=== PATIENT | male | born 1940 | race Caucasian/White ===

== ENCOUNTER 2017-10-26 00:55 | Inpatient (IN) | payer MEDICARE, BC ==
[~2017-10-26] VITALS: Ht 165.1 cm; Wt 143.9 kg
[2017-10-26] VITALS (9 sets, daily range): BP systolic 115–154; BP diastolic 47–78
[2017-10-26 01:15] LABS: BASO % 0.3 % (0.0-1.0); EOS # 0.1 10*3/uL (0.0-0.4); EOS % 0.9 % (1.0-4.0); HEMATOCRIT 43.8 % (42.0-52.0); HEMOGLOBIN 14.5 g/dl (14.0-18.0); LYMPH # 1.9 10*3/uL (1.3-4.4); LYMPH % 13.4 % (27.0-41.0); MEAN CELL VOLUME 92.8 fl (80.0-94.0); MEAN CORPUSCULAR HGB 30.7 pg (27.0-31.0); MEAN CORPUSCULAR HGB CONC 33.1 g/dl (33.0-37.0); MEAN PLATELET VOLUME 10.4 fl (9.6-12.3); MONO # 1.5 10*3/uL (0.1-1.0); MONO % 10.9 % (3.0-9.0); NEUT # 10.2 10*3/uL (2.3-7.9); NEUT % 73.6 % (47.0-73.0); PLATELET COUNT AUTOMATED 252 10*3/uL (130-400); RED BLOOD COUNT 4.72 10*6/uL (4.50-5.90); RED CELL DISTRI WIDTH 12.8 % (0-14.5); WHITE BLOOD COUNT 13.8 10*3/uL (4.8-10.8)
[2017-10-26 01:25] LABS: ACT PARTIAL THROMBO TIME 26.5 SECONDS (20.8-31.5)
[2017-10-26 01:30] LABS: ALBUMIN 2.9 gm/dl (3.1-4.5); ALKALINE PHOSPHATASE 158 U/L (45-117); BUN 13 mg/dl (7-24); CHLORIDE 102 mmol/L (98-107); CREATININE 0.78 mg/dL (0.70-1.30); POTASSIUM 3.7 mmol/L (3.5-5.1); SGOT/AST 271 IU/L (3-35); SGPT/ALT 142 U/L (12-78); SODIUM 140 mmol/L (136-145); TOTAL PROTEIN 7.7 gm/dL (6.4-8.2)
[2017-10-26 01:31] LABS: LIPASE 12230 U/L (73-393); TROPONIN I < 0.015 ng/ml (<0.045)
[2017-10-26 02:07] LABS: BILIRUBIN 1+ (NEGATIVE); BLOOD TRACE-INTACT (NEGATIVE); CLARITY CLEAR (CLEAR); COLOR YELLOW (YELLOW); GLUCOSE NEGATIVE (NEGATIVE); KETONE NEGATIVE (NEGATIVE); LEUKO ESTERASE 2+ (NEGATIVE); NITRITE NEGATIVE (NEGATIVE); SPECIFIC GRAVITY 1.025 (1.005-1.030)
[2017-10-26 02:33] LABS: BACTERIA TRACE
[2017-10-26] MEDS ORDERED: LANTUS SOL100 UNIT/1 SQ (06:12)
[2017-10-26] MEDS ORDERED: LANTUS SOL100 UNIT/1 SC (06:13)
[2017-10-26] MEDS ORDERED: QUINAPRIL40 MG PO (06:14)
[2017-10-26] MEDS ORDERED: HYDROCHLOROTH12.5 M2 PO (06:14)
[2017-10-26] MEDS ORDERED: OMEPRAZOLE40 MG PO (06:15)
[2017-10-26] MEDS ORDERED: TRAMADOL HCL50 MG PO (06:15)
[2017-10-26] MEDS ORDERED: DOXYCYCLINE100 M3 PO (06:16)
[2017-10-26] MEDS ORDERED: ASPIRIN CHEWABL81 MG PO (06:16)
[2017-10-26 06:25] LABS: BASO % 0.3 % (0.0-1.0); EOS # 0.1 10*3/uL (0.0-0.4); EOS % 0.6 % (1.0-4.0); HEMATOCRIT 44.1 % (42.0-52.0); HEMOGLOBIN 14.4 g/dl (14.0-18.0); LYMPH # 0.7 10*3/uL (1.3-4.4); LYMPH % 6.1 % (27.0-41.0); MEAN CORPUSCULAR HGB CONC 32.7 g/dl (33.0-37.0); MEAN PLATELET VOLUME 10.6 fl (9.6-12.3); MONO # 1.4 10*3/uL (0.1-1.0); MONO % 11.4 % (3.0-9.0); NEUT # 9.7 10*3/uL (2.3-7.9); NEUT % 80.8 % (47.0-73.0); PLATELET COUNT AUTOMATED 236 10*3/uL (130-400); RED BLOOD COUNT 4.64 10*6/uL (4.50-5.90); RED CELL DISTRI WIDTH 12.8 % (0-14.5)
[2017-10-26 06:55] LABS: ACT PARTIAL THROMBO TIME 25.9 SECONDS (20.8-31.5); INTERNATIONAL NORM RATIO 1.1 (2.0-3.5)
[2017-10-26 07:02] LABS: CHLORIDE 103 mmol/L (98-107); POTASSIUM 4.1 mmol/L (3.5-5.1); SODIUM 141 mmol/L (136-145)
[2017-10-26 07:14] LABS: ALBUMIN 2.6 gm/dl (3.1-4.5); ALKALINE PHOSPHATASE 202 U/L (45-117); BUN 10 mg/dl (7-24); CHOLESTEROL 113 mg/dL (<200); CREATININE 0.77 mg/dL (0.70-1.30); FREE T4 1.23 ng/dl (0.76-1.46); HDL CHOLESTEROL 41 mg/dl (40-60); LDL CHOLESTEROL 62 mg/dL (9-159); PHOSPHOROUS 2.8 mg/dL (2.5-4.9); SGOT/AST 469 IU/L (3-35); SGPT/ALT 313 U/L (12-78); TOTAL PROTEIN 7.2 gm/dL (6.4-8.2); TRIGLYCERIDES 51 mg/dl (<150); VLDL CHOLESTEROL 10 mg/dL (6-40)
[2017-10-26 07:45] LABS: VITAMIN D, 25-HYDROXY 38.5 ng/mL (30-100)
--- NOTE | 2017-10-26 21:01 | NUR ---
PATIENT SITTING IN CHAIR AT BEDSIDE WATCHING FOOTBALL. NO NEEDS OR COMPLAINTS AT THIS TIME. DENIES CHEST PAIN. BED IN LOWEST POSITION, CALL LIGHT IN REACH
[2017-10-27] VITALS: BP 147/81
[2017-10-27 06:43] LABS: BASO % 0.3 % (0.0-1.0); EOS # 0.3 10*3/uL (0.0-0.4); EOS % 3.4 % (1.0-4.0); HEMATOCRIT 39.7 % (42.0-52.0); HEMOGLOBIN 12.8 g/dl (14.0-18.0); LYMPH # 0.9 10*3/uL (1.3-4.4); LYMPH % 10.3 % (27.0-41.0); MEAN CELL VOLUME 94.7 fl (80.0-94.0); MEAN CORPUSCULAR HGB 30.5 pg (27.0-31.0); MEAN CORPUSCULAR HGB CONC 32.2 g/dl (33.0-37.0); MEAN PLATELET VOLUME 10.8 fl (9.6-12.3); MONO # 0.9 10*3/uL (0.1-1.0); MONO % 10.4 % (3.0-9.0); NEUT # 6.7 10*3/uL (2.3-7.9); NEUT % 74.5 % (47.0-73.0); PLATELET COUNT AUTOMATED 227 10*3/uL (130-400); RED BLOOD COUNT 4.19 10*6/uL (4.50-5.90); RED CELL DISTRI WIDTH 13.1 % (0-14.5); WHITE BLOOD COUNT 9.1 10*3/uL (4.8-10.8)
--- NOTE | 2017-10-27 06:54 | NUR ---
PATIENT RESTING IN BED WITH NO NEEDS MADE. USED CPAP FROM HOME DURING THE NIGHT. BED IN LOWEST POSITION, CALL LIGHT IN REACH
[2017-10-27 07:15] LABS: ALBUMIN 2.3 gm/dl (3.1-4.5); ALKALINE PHOSPHATASE 185 U/L (45-117); BUN 10 mg/dl (7-24); CHLORIDE 107 mmol/L (98-107); CREATININE 0.67 mg/dL (0.70-1.30); PHOSPHOROUS 2.5 mg/dL (2.5-4.9); POTASSIUM 4.2 mmol/L (3.5-5.1); SGOT/AST 216 IU/L (3-35); SGPT/ALT 289 U/L (12-78); SODIUM 142 mmol/L (136-145); TOTAL PROTEIN 6.5 gm/dL (6.4-8.2)
--- NOTE | 2017-10-27 08:00 | NUR ---
PT ULTRASOUND VIA WHEELCHAIR
--- NOTE | 2017-10-27 08:45 | NUR ---
PT RESTING IN CHAIR. NO DISTRESS NOTED. STATES THAT HE FEELS BETTER SINCE ADM. CALL LIGHT WITHIN REACH. WILL MONITOR
--- NOTE | 2017-10-27 09:00 | NUR ---
Hospice Team Lead in to talk to patient. Patient states lives at [facility] with . There are few steps in the home. Physician: michael [facility] Home health services: none Patient's level of ADLs: INDEPENDENT Patient has working utilities: all working DME: cpap Follow-up physician's appointment after d/c: will be made by hospitalist nurse director upon discharge Does patient want to access PORTAL?: no Discharge plan discussed with patient, patient lives at home with , states he is independent in adls and ambulation, patient states he will be going back home when able, discussed with him [facility] and he refused any services at this time. ANICETO SMITH
[2017-10-27 12:00] VITALS: BP 158/81
[2017-10-27 16:00] VITALS: BP 150/82
--- NOTE | 2017-10-27 17:27 | NUR ---
PT RESTING IN BED, NO DISTRESS NOTD. NO VOICED C/O. WILL MONITOR
--- NOTE | 2017-10-27 19:55 | NUR ---
PATIENT RESTING IN CHAIR AT BEDSIDE WITH NO NEEDS MADE. STATES HE FEELS MUCH BETTER AND IS READY TO GET HOME TO HIS WHO IS IN A [facility] FOR BRAIN SURGERY. NO NEEDS MADE AT THIS TIME. DENIES CHEST OR ABD PAIN. BED IN LOWEST POSITION, CALL LIGHT IN REACH
[2017-10-27 20:00] VITALS: BP 155/78
--- NOTE | 2017-10-27 22:11 | NUR ---
PATIENT'S MED REC REVIEWED. HOME MEDICATIONS NOT RESTARTED BY PHYSICIANS OF THIS TIME
--- NOTE | 2017-10-27 22:18 | NUR ---
DR MENON AWARE OF PATIENT'S HOME MEDS NOT BEING CONTINUED AND PATIENT TAKES HYDROCHLOROTHIAZIDE AT HOME, AND IS CURRENTLY GETTING FLUIDS AT 150/HR. SHE STATES SHE WILL ORDER A STAT CHEST XRAY AND TO SLOW FLUIDS DOWN TO 80ML/HR.
[2017-10-28] VITALS: BP 137/57
[2017-10-28 06:18] LABS: HEMATOCRIT 38.8 % (42.0-52.0); HEMOGLOBIN 12.8 g/dl (14.0-18.0); MEAN CELL VOLUME 94.4 fl (80.0-94.0); MEAN CORPUSCULAR HGB 31.1 pg (27.0-31.0); MEAN PLATELET VOLUME 10.9 fl (9.6-12.3); PLATELET COUNT AUTOMATED 257 10*3/uL (130-400); RED BLOOD COUNT 4.11 10*6/uL (4.50-5.90); RED CELL DISTRI WIDTH 13.1 % (0-14.5); WHITE BLOOD COUNT 9.1 10*3/uL (4.8-10.8)
[2017-10-28 06:36] LABS: ALBUMIN 2.4 gm/dl (3.1-4.5); BUN 12 mg/dl (7-24); CHLORIDE 107 mmol/L (98-107); LIPASE 193 U/L (73-393); POTASSIUM 4.3 mmol/L (3.5-5.1); SODIUM 142 mmol/L (136-145)
[2017-10-28 06:40] LABS: ALKALINE PHOSPHATASE 174 U/L (45-117); BILIRUBIN, DIRECT 0.5 mg/dL (0.0-0.2); CREATININE 0.66 mg/dL (0.70-1.30); SGOT/AST 84 IU/L (3-35); SGPT/ALT 189 U/L (12-78); TOTAL PROTEIN 6.4 gm/dL (6.4-8.2)
[2017-10-28 07:16] LABS: PLATELET SUFFICIENCY NORMAL (NORMAL); TOTAL CELLS COUNTED 100 #CELLS
[2017-10-28 08:00] VITALS: BP 156/78
--- NOTE | 2017-10-28 09:00 | NUR ---
case management visits with patient, patient denies any home needs
--- NOTE | 2017-10-28 10:44 | NUR ---
TALKED TO DR. MITCHELL. SURGERY HAS BEEN RULED AND LOW FAT DIET REQUESTED. WILL CONTINUE TO MONITOR.
--- NOTE | 2017-10-28 11:29 | NUR ---
CALLED ON PLANS AND DIETSTATUS OF PT. MADE AWARE OF NEW ORDERS.
[2017-10-28 12:00] VITALS: BP 156/73
--- NOTE | 2017-10-28 12:23 | NUR ---
Discharge instructions reviewed with patient. Patient receptive and verbalizes understanding. Written instructions given to patient. GRIS FIGUEROA
[2017-10-28 16:00] VITALS: BP 156/85
[2017-10-28 20:00] VITALS: BP 151/87
[2017-10-29] VITALS: BP 148/74
--- NOTE | 2017-10-29 04:08 | NUR ---
PT SLEEPING. NO DISTRESS NOTED. CHEST RISES AND FALLS SYMMETRICALLY AND STEADILY. HR IS 54 BMP PER CM. CPAP IS CURRENTLY IN USE BY THE PT.
[2017-10-29 06:50] LABS: BASO % 0.3 % (0.0-1.0); EOS # 0.2 10*3/uL (0.0-0.4); EOS % 2.3 % (1.0-4.0); HEMATOCRIT 38.5 % (42.0-52.0); HEMOGLOBIN 12.3 g/dl (14.0-18.0); LYMPH # 2.1 10*3/uL (1.3-4.4); LYMPH % 24.2 % (27.0-41.0); MEAN CELL VOLUME 94.1 fl (80.0-94.0); MEAN CORPUSCULAR HGB 30.1 pg (27.0-31.0); MEAN CORPUSCULAR HGB CONC 31.9 g/dl (33.0-37.0); MEAN PLATELET VOLUME 10.7 fl (9.6-12.3); MONO # 0.9 10*3/uL (0.1-1.0); MONO % 10.8 % (3.0-9.0); NEUT # 5.3 10*3/uL (2.3-7.9); NEUT % 61.2 % (47.0-73.0); PLATELET COUNT AUTOMATED 250 10*3/uL (130-400); RED BLOOD COUNT 4.09 10*6/uL (4.50-5.90); WHITE BLOOD COUNT 8.6 10*3/uL (4.8-10.8)
[2017-10-29 07:02] LABS: ALBUMIN 2.4 gm/dl (3.1-4.5); ALKALINE PHOSPHATASE 141 U/L (45-117); BILIRUBIN, DIRECT 0.3 mg/dL (0.0-0.2); BUN 12 mg/dl (7-24); CHLORIDE 108 mmol/L (98-107); CREATININE 0.62 mg/dL (0.70-1.30); POTASSIUM 3.9 mmol/L (3.5-5.1); SGOT/AST 44 IU/L (3-35); SGPT/ALT 129 U/L (12-78); SODIUM 142 mmol/L (136-145); TOTAL PROTEIN 6.2 gm/dL (6.4-8.2)
[2017-10-29 08:00] VITALS: BP 160/80
--- NOTE | 2017-10-29 09:00 | NUR ---
case management visits with patient, patient denies any home needs
[2017-10-29] MEDS ORDERED: AUGMENTIN 875-875 MG PO (09:32)
[2017-10-29 12:00] VITALS: BP 162/94
--- NOTE | 2017-10-29 13:35 | NUR ---
Discharge instructions reviewed with patient/family. Patient receptive and verbalizes understanding. Follow-up care arranged with pcp and dr. Reza one week. Written instructions given to patient/family. GRIS FIGUEROA
== END 2017-10-29 13:35 | disposition home or self-care (01) | DRG 871 ==
LOC: ED 00:55 → 5E 04:19 → EDHOLD 04:19 → 5E 04:33
PROVIDERS: Hospitalist; Internal Medicine; Nurse Practitioner Family; ADMIT Internal Medicine
DX: A41.9 Sepsis, unspecified organism (principal); K85.10 Biliary acute pancreatitis without necrosis or infection; E11.65 Type 2 diabetes mellitus with hyperglycemia; K81.9 Cholecystitis, unspecified; E66.01 Morbid (severe) obesity due to excess calories; E88.09 Other disorders of plasma-protein metabolism, not elsewhere classified; Z68.43 Body mass index [BMI] 50.0-59.9, adult; I10 Essential (primary) hypertension; K21.9 Gastro-esophageal reflux disease without esophagitis; E80.6 Other disorders of bilirubin metabolism; R74.0 Nonspecific elevation of levels of transaminase and lactic acid dehydrogenase [LDH]; R74.8 Abnormal levels of other serum enzymes; Z87.891 Personal history of nicotine dependence; Z90.89 Acquired absence of other organs; Z79.899 Other long term (current) drug therapy; Z79.82 Long term (current) use of aspirin; Z79.4 Long term (current) use of insulin; Z88.8 Allergy status to other drugs, medicaments and biological substances

== ENCOUNTER 2017-11-17 01:32 | Inpatient (IN) | payer MEDICARE, BC ==
[2017-11-13 10:53] LABS: BASO % 0.4 % (0.0-1.0); EOS # 0.1 10*3/uL (0.0-0.4); EOS % 0.9 % (1.0-4.0); HEMATOCRIT 45.9 % (42.0-52.0); HEMOGLOBIN 14.8 g/dl (14.0-18.0); LYMPH # 1.6 10*3/uL (1.3-4.4); MEAN CELL VOLUME 94.4 fl (80.0-94.0); MEAN CORPUSCULAR HGB 30.5 pg (27.0-31.0); MEAN CORPUSCULAR HGB CONC 32.2 g/dl (33.0-37.0); MEAN PLATELET VOLUME 10.9 fl (9.6-12.3); MONO % 13.2 % (3.0-9.0); NEUT # 4.8 10*3/uL (2.3-7.9); NEUT % 64.2 % (47.0-73.0); PLATELET COUNT AUTOMATED 335 10*3/uL (130-400); RED BLOOD COUNT 4.86 10*6/uL (4.50-5.90); WHITE BLOOD COUNT 7.5 10*3/uL (4.8-10.8)
[2017-11-13 11:20] LABS: ALBUMIN 3.3 gm/dl (3.1-4.5); ALKALINE PHOSPHATASE 108 U/L (45-117); BUN 18 mg/dl (7-24); CHLORIDE 102 mmol/L (98-107); CREATININE 0.89 mg/dL (0.70-1.30); POTASSIUM 4.3 mmol/L (3.5-5.1); SGOT/AST 22 IU/L (3-35); SGPT/ALT 38 U/L (12-78); SODIUM 139 mmol/L (136-145); TOTAL PROTEIN 8.1 gm/dL (6.4-8.2)
[~2017-11-17] VITALS: Ht 170.1 cm; Wt 139.9 kg
[2017-11-17] VITALS (19 sets, daily range): BP systolic 135–169; BP diastolic 61–92
[~2017-11-17 01:32] MED LIST: ASPIRIN CHEWABL81 MG PO; AUGMENTIN 875-875 MG PO; CENTRUM SILVER1 EACH PO; DOXYCYCLINE100 M3 PO; HYDROCHLOROTH12.5 M2 PO; LANTUS SOL100 UNIT/1 SC; LANTUS SOL100 UNIT/1 SQ; METAMUCIL0.4 G1 PO; NOVOLOG100 UNIT/1 SC; OMEPRAZOLE40 MG PO; QUINAPRIL40 MG PO; TRAMADOL HCL50 MG PO
[2017-11-17] MEDS ORDERED: PERCOCET 5-3251 EACH PO (13:39)
--- NOTE | 2017-11-17 17:00 | NUR ---
PATIENT'S NEDICATION WAS PLACED INTO THE COMPUTER AND DR. SOFIA AWARE.
--- NOTE | 2017-11-17 19:07 | NUR ---
INSTUCTED PT ON USE AND BENEFITS OF INCENTIVE SPIROMETRY. PT HAD GOOD EFFORT 2000 X 10 I.S. AT BEDSIDE
--- NOTE | 2017-11-17 19:58 | NUR ---
Time: 1599 A 76 year old MALE admitted to under services of PRAMOD MARIN DO. Pt. arrived via bed from OP/ADMIT. Chief complaint: LAP CHOLESYSECTOMY AND HIATEL HERNIA REPAIR. ERNESTINA MARIANO
--- NOTE | 2017-11-17 20:09 | NUR ---
Upon entering room pt. c/o "i feel like my throat is closing off. It's happend to me before." pt. has been clearing throat. vital signs obtain and assessment. called Dr. Barnes and notified him of this and orders received.
--- NOTE | 2017-11-17 20:15 | NUR ---
Dr. Barnes here and assessed pt. orders to be recieved.
--- NOTE | 2017-11-17 20:21 | NUR ---
solumedrol, benadryl, 0.9NS given per order. see mar.
--- NOTE | 2017-11-17 20:50 | NUR ---
called resp. therapist and he said "we need setting orders for the C-pap" pt. unsure of own settings and called Dr. Barnes and he is going to put orders in for settings.
--- NOTE | 2017-11-17 21:30 | NUR ---
PER PT. CONDITION UNCHANGED BUT NOT WORSE. GAVE PT. ICE TO HELP KEEP THROAT MOIST AND TO CALM IRRITATION FEELING PT. STATING HE'S HAVING.
--- NOTE | 2017-11-17 22:00 | NUR ---
UP TO BATHROOM WITH ASSISTANCE. PT. DID WELL UP TO VOID AND RETURNED BACK TO BED. NO DIZZINESS VOICED.
--- NOTE | 2017-11-17 22:56 | NUR ---
PT REFUSED TO WEAR C-PAP AT THIS TIME
[2017-11-18] VITALS: BP 154/76
[2017-11-18 06:54] LABS: BASO % 0.1 % (0.0-1.0); HEMATOCRIT 42.2 % (42.0-52.0); HEMOGLOBIN 13.9 g/dl (14.0-18.0); LYMPH # 0.7 10*3/uL (1.3-4.4); LYMPH % 6.3 % (27.0-41.0); MEAN CELL VOLUME 93.8 fl (80.0-94.0); MEAN CORPUSCULAR HGB 30.9 pg (27.0-31.0); MEAN CORPUSCULAR HGB CONC 32.9 g/dl (33.0-37.0); MONO # 0.7 10*3/uL (0.1-1.0); MONO % 6.4 % (3.0-9.0); NEUT % 86.8 % (47.0-73.0); PLATELET COUNT AUTOMATED 240 10*3/uL (130-400); RED CELL DISTRI WIDTH 13.4 % (0-14.5); WHITE BLOOD COUNT 10.4 10*3/uL (4.8-10.8)
[2017-11-18 07:00] LABS: ALBUMIN 2.9 gm/dl (3.1-4.5); ALKALINE PHOSPHATASE 99 U/L (45-117); BUN 14 mg/dl (7-24); CHLORIDE 105 mmol/L (98-107); CREATININE 0.84 mg/dL (0.70-1.30); PHOSPHOROUS 2.6 mg/dL (2.5-4.9); POTASSIUM 4.1 mmol/L (3.5-5.1); SGOT/AST 75 IU/L (3-35); SGPT/ALT 103 U/L (12-78); SODIUM 141 mmol/L (136-145); TOTAL PROTEIN 7.1 gm/dL (6.4-8.2)
[2017-11-18 08:00] VITALS: BP 128/50
--- NOTE | 2017-11-18 08:00 | NUR ---
ASSUMED CARE OF PATIENT. PATIENT WAS PLEASANT AND COOPERATIVE. NO COMPLAINTS OF PAIN AND SHORTNESS OF BREATH.
--- NOTE | 2017-11-18 09:00 | NUR ---
Team [employer] Truck Driver in to talk to patient. Patient states lives at home with . There are few steps in the home. Physician: mary rodriguez [facility] Home health services: none Patient's level of ADLs: INDEPENDENT Patient has working utilities: all working DME: cpap Follow-up physician's appointment after d/c: will be made by hospitalist nurse director upon discharge Does patient want to access PORTAL?: no Discharge plan discussed with patient, patient lives at home with , states he is independent in adls and ambulation, drives, patient states he will be going back home when able and denies any home needs. ANICETO SMITH
[2017-11-18 12:00] VITALS: BP 127/54
[2017-11-18] MEDS ORDERED: AUGMENTIN 875875 MG PO (13:46)
--- NOTE | 2017-11-18 14:33 | NUR ---
Discharge instructions reviewed with patient/family. Patient receptive and verbalizes understanding. Follow-up care arranged. Written instructions given to patient/family. FRED MIRZA
== END 2017-11-18 14:32 | disposition home or self-care (01) | DRG 418 ==
LOC: SDC 01:32 → 5E 15:32
PROVIDERS: ADMIT Emergency Medicine
PROC: 0WQF4ZZ Repair Abdominal Wall, Percutaneous Endoscopic Approach (ICD-10-PCS; principal; 2017-11-17)
PROC: BF131ZZ Fluoroscopy of Gallbladder and Bile Ducts using Low Osmolar Contrast (ICD-10-PCS; principal; 2017-11-17)
PROC: 0FT44ZZ Resection of Gallbladder, Percutaneous Endoscopic Approach (ICD-10-PCS; principal; 2017-11-17)
DX: K80.12 Calculus of gallbladder with acute and chronic cholecystitis without obstruction (principal); K82.1 Hydrops of gallbladder; E11.9 Type 2 diabetes mellitus without complications; E66.01 Morbid (severe) obesity due to excess calories; E44.1 Mild protein-calorie malnutrition; D72.810 Lymphocytopenia; Z68.42 Body mass index [BMI] 45.0-49.9, adult; G89.18 Other acute postprocedural pain; I10 Essential (primary) hypertension; G47.30 Sleep apnea, unspecified; K21.9 Gastro-esophageal reflux disease without esophagitis; K42.9 Umbilical hernia without obstruction or gangrene; Z87.891 Personal history of nicotine dependence; Z88.8 Allergy status to other drugs, medicaments and biological substances; Z79.82 Long term (current) use of aspirin; Z79.899 Other long term (current) drug therapy; Z79.4 Long term (current) use of insulin

== ENCOUNTER 2020-03-21 12:37 | Emergency (ER) | payer MEDICARE, BC ==
[~2020-03-21] VITALS: Ht 170.1 cm; Wt 154.2 kg
[~2020-03-21 12:37] MED LIST changes: +AUGMENTIN 875875 MG PO; +PERCOCET 5-3251 EACH PO
[2020-03-21 13:27] LABS: BASO # 0.1 10*3/uL (0.0-0.1); BASO % 0.5 % (0.0-1.0); EOS % 0.4 % (1.0-4.0); HEMATOCRIT 24.8 % (42.0-52.0); LYMPH # 1.9 10*3/uL (1.3-4.4); LYMPH % 17.8 % (27.0-41.0); MEAN CELL VOLUME 83.2 fl (80.0-94.0); MEAN CORPUSCULAR HGB 24.5 pg (27.0-31.0); MEAN CORPUSCULAR HGB CONC 29.4 g/dl (33.0-37.0); MEAN PLATELET VOLUME 9.7 fl (9.6-12.3); MONO # 1.5 10*3/uL (0.1-1.0); MONO % 13.5 % (3.0-9.0); NEUT # 7.3 10*3/uL (2.3-7.9); NEUT % 67.3 % (47.0-73.0); PLATELET COUNT AUTOMATED 339 10*3/uL (130-400); RED BLOOD COUNT 2.98 10*6/uL (4.50-5.90); WHITE BLOOD COUNT 10.9 10*3/uL (4.8-10.8)
[2020-03-21 13:37] LABS: ACT PARTIAL THROMBO TIME 23.6 SECONDS (20.0-32.1)
[2020-03-21 13:45] LABS: ALBUMIN 2.9 gm/dl (3.1-4.5); ALKALINE PHOSPHATASE 61 U/L (45-117); BUN 23 mg/dl (7-24); CHLORIDE 108 mmol/L (98-107); CREATININE 0.91 mg/dL (0.70-1.30); POTASSIUM 3.6 mmol/L (3.5-5.1); SGOT/AST 13 IU/L (3-35); SGPT/ALT 18 U/L (12-78); SODIUM 138 mmol/L (136-145); TOTAL PROTEIN 6.8 gm/dL (6.4-8.2); TROPONIN I < 0.015 ng/ml (<0.045)
[2020-03-21 17:00] VITALS: BP 130/52
== END 2020-03-21 17:23 | disposition short-term general hospital (02) ==
LOC: ED 12:37
PROVIDERS: Emergency Medicine
DX: K92.2 Gastrointestinal hemorrhage, unspecified (principal); R05 Cough; J02.9 Acute pharyngitis, unspecified; Z79.899 Other long term (current) drug therapy; Z79.82 Long term (current) use of aspirin; Z79.4 Long term (current) use of insulin

== ENCOUNTER → 2022-02-11 | Outpatient (CLI) | payer OTHER | END | disposition home or self-care (01) | LOC: US 10:17 | PROVIDERS: ATTEND Nurse Practitioner Family | DX: E04.1 Nontoxic single thyroid nodule (principal) ==

== ENCOUNTER → 2022-12-24 | Outpatient (CLI) | payer MEDICARE, BC | END | disposition home or self-care (01) | LOC: WOUNDCARE 15:02 | PROVIDERS: ATTEND Nurse Practitioner Family | DX: S31.109A Unspecified open wound of abdominal wall, unspecified quadrant without penetration into peritoneal cavity, initial encounter (principal); E11.622 Type 2 diabetes mellitus with other skin ulcer; L98.492 Non-pressure chronic ulcer of skin of other sites with fat layer exposed; C44.90 Unspecified malignant neoplasm of skin, unspecified; E11.40 Type 2 diabetes mellitus with diabetic neuropathy, unspecified; I10 Essential (primary) hypertension; Z90.49 Acquired absence of other specified parts of digestive tract; Z87.891 Personal history of nicotine dependence; Z79.4 Long term (current) use of insulin; X58.XXXA Exposure to other specified factors, initial encounter; Y93.89 Activity, other specified; Y92.89 Other specified places as the place of occurrence of the external cause; Y99.8 Other external cause status ==

== ENCOUNTER → 2023-01-15 | Outpatient (CLI) | payer MEDICARE, BC | END | disposition home or self-care (01) | LOC: WOUNDCARE 01:37 | PROVIDERS: ATTEND Nurse Practitioner Family | DX: T81.89XA Other complications of procedures, not elsewhere classified, initial encounter (principal); S31.109D Unspecified open wound of abdominal wall, unspecified quadrant without penetration into peritoneal cavity, subsequent encounter; C44.90 Unspecified malignant neoplasm of skin, unspecified; E11.622 Type 2 diabetes mellitus with other skin ulcer; L98.492 Non-pressure chronic ulcer of skin of other sites with fat layer exposed; E11.40 Type 2 diabetes mellitus with diabetic neuropathy, unspecified; I10 Essential (primary) hypertension; Z87.891 Personal history of nicotine dependence; Z90.49 Acquired absence of other specified parts of digestive tract; X58.XXXD Exposure to other specified factors, subsequent encounter ==

== ENCOUNTER → 2023-02-10 | Outpatient (CLI) | payer MEDICARE, BC | END | disposition home or self-care (01) | LOC: WOUNDCARE 01:41 | PROVIDERS: ATTEND Nurse Practitioner Family | DX: S31.109D Unspecified open wound of abdominal wall, unspecified quadrant without penetration into peritoneal cavity, subsequent encounter (principal); C44.90 Unspecified malignant neoplasm of skin, unspecified; E11.622 Type 2 diabetes mellitus with other skin ulcer; L98.492 Non-pressure chronic ulcer of skin of other sites with fat layer exposed; E11.40 Type 2 diabetes mellitus with diabetic neuropathy, unspecified; I10 Essential (primary) hypertension; Z87.891 Personal history of nicotine dependence; Z90.49 Acquired absence of other specified parts of digestive tract; X58.XXXD Exposure to other specified factors, subsequent encounter ==

== ENCOUNTER 2023-09-24 21:12 | Emergency (ER) | payer MEDICARE, BC ==
[~2023-09-24] VITALS: Wt 142.0 kg
[2023-09-24] MEDS ORDERED: LANTUS SOL100 UNIT/1 SQ (21:21)
[2023-09-24] MEDS ORDERED: RAMIPRIL10 MG PO (21:22)
[2023-09-24] MEDS ORDERED: METAMUCIL FIBER2 GM PO (21:22)
[2023-09-24 21:53] LABS: HEMATOCRIT 42.2 % (42.0-52.0); MEAN CELL VOLUME 93.2 fl (80.0-94.0); MEAN CORPUSCULAR HGB 31.1 pg (27.0-31.0); MEAN CORPUSCULAR HGB CONC 33.4 g/dl (33.0-37.0); MEAN PLATELET VOLUME 10.4 fl (9.6-12.3); PLATELET COUNT AUTOMATED 206 10*3/uL (130-400); RED BLOOD COUNT 4.53 10*6/uL (4.50-5.90); RED CELL DISTRI WIDTH 14.1 % (0-14.5); WHITE BLOOD COUNT 14.7 10*3/uL (4.8-10.8)
[2023-09-24 21:55] LABS: MANUAL DIFF REFLEX YES
[2023-09-24 22:03] LABS: ACT PARTIAL THROMBO TIME 26.1 SECONDS (20.0-32.1); INTERNATIONAL NORM RATIO 1.1 (2.0-3.5)
[2023-09-24 22:10] LABS: ALKALINE PHOSPHATASE 385 U/L (46-116); BUN 15 mg/dl (9-23); CHLORIDE 103 mmol/L (98-107); LIPASE 33 U/L (12-53); POTASSIUM 3.1 mmol/L (3.4-5.1); SGPT/ALT 305 U/L (5-49); TOTAL PROTEIN 6.4 gm/dL (6.0-8.0)
[2023-09-24 22:13] LABS: BURR CELLS FEW; PLATELET SUFFICIENCY NORMAL (NORMAL); TOTAL CELLS COUNTED 100 #CELLS; TOXIC GRANULATION SLIGHT
[2023-09-24 23:19] LABS: BILIRUBIN 2+ (Negative); BLOOD Negative (Negative); CLARITY Clear (Clear); COLOR Dark Yellow (Yellow); GLUCOSE Negative (Negative); KETONE Trace (Negative); LEUKO ESTERASE Negative (Negative); NITRITE Negative (Negative)
[2023-09-25 11:40] LABS: HEMATOCRIT 38.7 % (42.0-52.0); MEAN CELL VOLUME 94.2 fl (80.0-94.0); MEAN CORPUSCULAR HGB 31.1 pg (27.0-31.0); MEAN CORPUSCULAR HGB CONC 33.1 g/dl (33.0-37.0); MEAN PLATELET VOLUME 10.5 fl (9.6-12.3); PLATELET COUNT AUTOMATED 195 10*3/uL (130-400); RED BLOOD COUNT 4.11 10*6/uL (4.50-5.90); RED CELL DISTRI WIDTH 14.7 % (0-14.5); WHITE BLOOD COUNT 20.1 10*3/uL (4.8-10.8)
[2023-09-25 11:46] LABS: MANUAL DIFF REFLEX YES
[2023-09-25 11:54] LABS: ACT PARTIAL THROMBO TIME 29.3 SECONDS (20.0-32.1); INTERNATIONAL NORM RATIO 1.2 (2.0-3.5)
[2023-09-25 11:59] LABS: TOTAL CELLS COUNTED 100 #CELLS
[2023-09-25 12:00] LABS: PLATELET SUFFICIENCY NORMAL (NORMAL)
[2023-09-25 12:02] LABS: ALKALINE PHOSPHATASE 295 U/L (46-116); BUN 12 mg/dl (9-23); CHLORIDE 108 mmol/L (98-107); LIPASE 39 U/L (12-53); POTASSIUM 3.9 mmol/L (3.4-5.1); SGPT/ALT 284 U/L (5-49); TOTAL PROTEIN 5.7 gm/dL (6.0-8.0)
[2023-09-25 17:25] VITALS: BP 142/68
[2023-09-25] MEDS ORDERED: CIPRO500 MG PO (21:06)
[2023-09-25] MEDS ORDERED: FLOMAX0.4 MG PO (21:06)
[2023-09-25] MEDS ORDERED: ONDANSETRON4 MG SL (21:06)
[2023-09-25] MEDS ORDERED: HYDROCODONE-AC1 EAC1 PO (21:06)
[2023-09-26 07:07] LABS: HBSAG Negative (Negative); HEP B CORE AB, IGM Negative (Negative); HEPATITIS C ANTIBODY Non Reactive (Non Reactive)
== END 2023-09-25 21:29 | disposition home or self-care (01) ==
LOC: ED 21:12
PROVIDERS: Emergency Medicine; Internal Medicine
DX: R65.20 Severe sepsis without septic shock (principal); N20.0 Calculus of kidney; N20.9 Urinary calculus, unspecified; R74.01 Elevation of levels of liver transaminase levels; N39.0 Urinary tract infection, site not specified; E11.9 Type 2 diabetes mellitus without complications; I10 Essential (primary) hypertension; K21.9 Gastro-esophageal reflux disease without esophagitis; Z95.5 Presence of coronary angioplasty implant and graft; Z88.8 Allergy status to other drugs, medicaments and biological substances; Z98.890 Other specified postprocedural states

== ENCOUNTER → 2023-10-09 | Outpatient (CLI) | payer MEDICARE, BC ==
[~2023-10-09] MED LIST changes: +CIPRO500 MG PO; +FLOMAX0.4 MG PO; +HYDROCODONE-AC1 EAC1 PO; +METAMUCIL FIBER2 GM PO; +ONDANSETRON4 MG SL; +RAMIPRIL10 MG PO
== END | disposition home or self-care (01) ==
LOC: LAB 11:08
PROVIDERS: ATTEND Nurse Practitioner Family
DX: E87.5 Hyperkalemia (principal)

== ENCOUNTER 2024-03-29 20:27 | Emergency (ER) | payer MEDICARE, BC ==
[~2024-03-29] VITALS: Ht 167.6 cm; Wt 147.4 kg
[2024-03-29] MEDS ORDERED: Ondansetron Hydrochloride 4 MG/2 ML VIAL IV ONE (20:40)
[2024-03-29 20:42] LABS: HEMATOCRIT 43.6 % (42.0-52.0); MEAN CELL VOLUME 96.9 fl (80.0-94.0); MEAN CORPUSCULAR HGB 31.3 pg (27.0-31.0); MEAN CORPUSCULAR HGB CONC 32.3 g/dl (33.0-37.0); MEAN PLATELET VOLUME 10.6 fl (9.6-12.3); PLATELET COUNT AUTOMATED 194 10*3/uL (130-400); RED CELL DISTRI WIDTH 13.3 % (0-14.5)
[2024-03-29 20:44] LABS: MANUAL DIFF REFLEX YES
[2024-03-29] MEDS ORDERED: LIPITOR10 MG PO (20:57)
[2024-03-29 21:02] LABS: PLATELET SUFFICIENCY NORMAL (NORMAL); TOTAL CELLS COUNTED 100 #CELLS
[2024-03-29 21:03] LABS: ALKALINE PHOSPHATASE 244 U/L (46-116); BUN 15 mg/dl (9-23); BURR CELLS FEW; CHLORIDE 104 mmol/L (98-107); POTASSIUM 3.7 mmol/L (3.4-5.1); SGPT/ALT 324 U/L (5-49); TOTAL PROTEIN 6.8 gm/dL (6.0-8.0)
[2024-03-29] MEDS ORDERED: BUMETANIDE 1 MG/4 ML VIAL IV ONE (21:15)
[2024-03-30] MEDS ORDERED: Piperacillin Sodium/Tazobact 50 ML IV ONE (07:10)
[2024-03-30 11:22] VITALS: BP 136/65
== END 2024-03-30 16:28 | disposition short-term general hospital (02) ==
LOC: ED 20:27
PROVIDERS: Internal Medicine
DX: K85.90 Acute pancreatitis without necrosis or infection, unspecified (principal); E11.9 Type 2 diabetes mellitus without complications; I10 Essential (primary) hypertension; K21.9 Gastro-esophageal reflux disease without esophagitis; Z90.49 Acquired absence of other specified parts of digestive tract; Z98.890 Other specified postprocedural states; Z95.5 Presence of coronary angioplasty implant and graft

== ENCOUNTER → 2024-10-14 | Outpatient (CLI) | payer MEDICARE, BC ==
[~2024-10-14] MED LIST changes: +LIPITOR10 MG PO
[2024-10-14 12:11] LABS: BASO % 0.3 % (0.0-1.0); EOS # 0.1 10*3/uL (0.0-0.4); EOS % 0.9 % (1.0-4.0); HEMATOCRIT 44.5 % (42.0-52.0); MEAN CELL VOLUME 95.7 fl (80.0-94.0); MEAN CORPUSCULAR HGB CONC 33.5 g/dl (33.0-37.0); MEAN PLATELET VOLUME 10.9 fl (9.6-12.3); MONO # 1.1 10*3/uL (0.1-1.0); MONO % 12.8 % (3.0-9.0); NEUT # 5.5 10*3/uL (2.3-7.9); NEUT % 63.1 % (47.0-73.0); PLATELET COUNT AUTOMATED 200 10*3/uL (130-400); RED BLOOD COUNT 4.65 10*6/uL (4.50-5.90); RED CELL DISTRI WIDTH 13.6 % (0-14.5); WHITE BLOOD COUNT 8.7 10*3/uL (4.8-10.8)
[2024-10-14 12:22] LABS: ACT PARTIAL THROMBO TIME 26.9 SECONDS (20.0-32.1)
[2024-10-14 12:35] LABS: ALKALINE PHOSPHATASE 68 U/L (46-116); BUN 12 mg/dl (9-23); CHLORIDE 105 mmol/L (98-107); SGPT/ALT 14 U/L (5-49); TOTAL PROTEIN 7.2 gm/dL (6.0-8.0)
== END | disposition home or self-care (01) ==
LOC: LAB 11:32
PROVIDERS: ATTEND Surgery
DX: Z01.812 Encounter for preprocedural laboratory examination (principal); Z79.899 Other long term (current) drug therapy; Z88.8 Allergy status to other drugs, medicaments and biological substances; Z79.01 Long term (current) use of anticoagulants